=== PATIENT | female | born 1980 | race African-American/Black ===

== ENCOUNTER 2018-03-22 12:19 | Emergency (ER) | payer OTHER, MEDICAID ==
[~2018-03-22] VITALS: Ht 172.7 cm; Wt 61.2 kg
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
--- NOTE | 2018-03-22 12:48 | NUR ---
CALLED [facility], LEFT MESSAGE ON VOICEMAIL
--- NOTE | 2018-03-22 13:24 | NUR ---
XRAY AT BEDSIDE
[2018-03-22 14:34] VITALS: BP 132/80
--- NOTE | 2018-03-22 14:34 | NUR ---
Patient discharged to home in stable condition. Written and verbal after care instructions given. Patient verbalizes understanding of instruction.
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
== END 2018-03-22 14:35 | disposition home or self-care (01) ==
LOC: ER 12:20
DX: S00.83XA Contusion of other part of head, initial encounter (principal); S50.12XA Contusion of left forearm, initial encounter; S60.212A Contusion of left wrist, initial encounter; S60.222A Contusion of left hand, initial encounter; S60.221A Contusion of right hand, initial encounter; S80.02XA Contusion of left knee, initial encounter; S80.01XA Contusion of right knee, initial encounter; S20.312A Abrasion of left front wall of thorax, initial encounter; R11.2 Nausea with vomiting, unspecified; Y04.8XXA Assault by other bodily force, initial encounter; Y93.89 Activity, other specified; Y92.89 Other specified places as the place of occurrence of the external cause; Y99.8 Other external cause status
CPT/HCPCS: 73090-TC; 73130-TC; A4606; Z7610